=== PATIENT | male | born 1975 | race African-American/Black ===

== ENCOUNTER 2020-10-23 16:05 | Emergency (ER) | payer BC, SELFPAY ==
--- NOTE | ~2020-10-23 | XR_ITS ---
EXAMINATION: XR wrist RT min 3V DATE: 10/23/2020 16:27 INDICATION: Ulnar-sided right wrist pain and tenderness TECHNIQUE: Posteroanterior, ulnar deviation, oblique, and lateral views of the right wrist were obtai terrence. COMPARISON: none FINDINGS: Alignment is normal. No fracture. Joint spaces are normal. Mild soft tissue swelling with subcutaneou s edema along the ulnar side of the distal forearm. IMPRESSION: 1. No osseous abnormality. Reviewed, dictated and finalized at location A. IMPRESSION: 1. No osseous abnormality.
[2020-10-23 16:15] VITALS: BP 133/83; PULSE 83; RESP 20; TEMP 36.9; O2SAT 100
--- NOTE | 2020-10-23 16:15 | ED.UPPEXIN ---
HPI - Extremity Injury (Upper) General Chief Complaint: Extremity Injury, Upper Stated Complaint: Right wrist pain Time Seen by Provider: 10/23/20 16:15 Source: patient and RN notes reviewed Mode of arrival: ambulatory Limitations: no limitations History of Present Illness HPI narrative: 45 yo male C/O pain in the right wrist for 2 weeks. Patient reports moving a pool table when he twisted the wrist the wrong way. Has had some inflammation and popping since. No treatment prior to arrival. Related Data Home Medications Medication Instructions Recorded Confirmed amlodipine [Norvasc] 5 mg PO DAILY 10/23/20 10/23/20 Allergies Allergy/AdvReac Type Severity Reaction Status Date / Time No Known Allergies Allergy Verified 10/23/20 16:20 Review of Systems Review of Systems: All systems reviewed & are unremarkable except as noted in HPI and below Constitutional: Constitutional: Reports no additional constitutional complaints, Denies chills and Denies fever(s) Cardiovascular: Cardiovascular: Reports no additional cardiovascular complaints and Denies chest pain Respiratory: Respiratory: Reports no additional respiratory complaints, Denies cough, Denies dyspnea and Denies wheezing Gastrointestinal: Gastrointestinal: Reports no additional gastrointestinal complaints, Denies abdominal pain, Denies diarrhea, Denies nausea and Denies vomiting Musculoskeletal: Musculoskeletal: Reports arthralgias (Right wrist) Neurologic: Reports system reviewed and no additional complaints, except as documented, Denies headache(s), Denies focal weakness, Denies numbness and Denies weakness Psychiatric: Psychiatric: Reports no additional psychiatric complaints PMFSH Past Medical History Medical History (Updated 10/23/20 @ 19:06 by Jannette Singh) Hypertension Social History Social History Gender identity (if verbalized by the patient): Male Exam Const: General: healthy appearing, no acute distress and alert Nutritional Appearance: well nourished and obese Orientation/consciousness: patient oriented x3 Neck: Neck: normal visual inspection Chest: Chest palpation & inspection: normal inspection of the chest Resp: Effort & Inspection: normal respiratory effort Auscultation: clear to auscultation bilaterally Cardio: Rate: regular rate Rhythm: regular rhythm Skin: General skin exam: normal color Rashes: no rashes Wounds: no wounds Neuro: General: patient oriented x3 and moves all extremities Speech: normal speech Gait exam (Neuro): Normal gait present Extrem: Right upper extremity: wrist tenderness of the volar wrist; not of the anatomic snuffbox, swelling, normal ROM and other (Positive radial pulse. Capillary refill under 2 seconds.); no abrasions, no lacerations and no ecchymosis Psych: Appearance: grossly normal and well kempt Mental Status: mental status grossly normal Affect: normal affect Attitude: cooperative Thought content: Yes Normal thought content present Course Vital Signs Vital signs: Vital Signs Temperature 98.4 F 10/23/20 16:15 Pulse Rate 83 10/23/20 16:15 Respiratory Rate 20 10/23/20 16:15 Blood Pressure 133/83 10/23/20 16:15 Pulse Oximetry 100 10/23/20 16:15 Temperature 98.4 F 10/23/20 16:15 Pulse Rate 83 10/23/20 16:15 Respiratory Rate 20 10/23/20 16:15 Blood Pressure 133/83 10/23/20 16:15 Pulse Oximetry 100 10/23/20 16:15 Reviewed MDM - Extremity Injury (Upper) MDM Narrative Medical decision making narrative: Discharge instructions reviewed with patient, as well as provided in writing per nursing staff. The instructions also include specific and strict return/GO TO THE ER as well as f/u information. All questions have been answered, and the patient deny any further questions with discharge and discharge plan. Differential Diagnosis Differential diagnosis: Likely sprain and strain of wrist, fracture of giron
== END 2020-10-23 16:40 | disposition home or self-care (01) ==
PROVIDERS: Emergency Provider Nurse Practitioner; PCP Physician Assistant
DX: S63.501A Unspecified sprain of right wrist, initial encounter (principal); S66.911A Strain of unspecified muscle, fascia and tendon at wrist and hand level, right hand, initial encounter; X50.9XXA Other and unspecified overexertion or strenuous movements or postures, initial encounter; I10 Essential (primary) hypertension
CPT/HCPCS: 73110; 99213; G0463

== ENCOUNTER 2021-01-16 10:21 | Emergency (ER) | payer OTHER, BC, SELFPAY ==
[2021-01-16 10:26] VITALS: BP 126/84; PULSE 92; RESP 18; TEMP 36.6; O2SAT 100
[2021-01-16] MEDS: KETOROLAC (*BKC) 60 MG/2 ML VIAL IM (11:26)
[2021-01-16 11:56] VITALS: TEMP 36.6
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
[2021-01-16 12:23] VITALS: BP 128/74; PULSE 78; RESP 18; O2SAT 98
== END 2021-01-16 12:24 | disposition home or self-care (01) ==
PROVIDERS: Emergency Provider General Practice; PCP Physician Assistant
DX: S39.012A Strain of muscle, fascia and tendon of lower back, initial encounter (principal); S16.1XXA Strain of muscle, fascia and tendon at neck level, initial encounter; V43.52XA Car driver injured in collision with other type car in traffic accident, initial encounter
CPT/HCPCS: 96372; 99283; J1885

== ENCOUNTER 2022-03-12 08:16 | Emergency (ER) | payer BC, SELFPAY ==
[2022-03-12 08:27] VITALS: BP 137/89; PULSE 97; RESP 22; TEMP 36.8; O2SAT 100
--- NOTE | 2022-03-12 08:27 | ED.URI ---
HPI - URI/Sore Throat General Chief Complaint: Upper Respiratory Infection Stated Complaint: Ears Irritation, Sinus Time Seen by Provider: 03/12/22 08:30 Source: patient, RN notes reviewed and old records reviewed Mode of arrival: ambulatory Limitations: no limitations History of Present Illness HPI Narrative: 46-year-old male who presents to [facility] care with complaints of sinus congestion, sinus pressure and drainage with some cough since Tuesday. patient reports that he has been using Mucinex, some nasal spray and has been taking cold and flu mediation OTC and he received RX from his physician's office for codeine cough syrup and Amoxicillin which he started last night. Patient has had COVID vaccinations and Booster but has not had flu shot and wants to be tested for Flu. Patient denies any sore throat or shortness of breath, denies any known fevers, chills or sweats, denies any body aches. MD elicited complaint: cough, rhinorrhea, nasal congestion and other (ears feel irritated.) Pertinent past history: seasonal allergies Onset (ago): day(s) (tuesday 3 days) Treatments prior to arrival: cold medicine and other (nasal spray, codeine cough medication and Antibiotic of amoxicillin) Related Data Home Medications Medication Instructions Recorded Confirmed amlodipine 5 mg tablet (Norvasc) 5 mg PO DAILY 10/23/20 03/12/22 hydrochlorothiazide 25 mg tablet 25 mg DIRECTED 01/16/21 03/12/22 amoxicillin 500 mg capsule 500 mg DIRECTED 03/12/22 03/12/22 codeine 10 mg-guaifenesin 100 mg/5 5 ml DIRECTED 03/12/22 03/12/22 mL oral liquid Allergies Allergy/AdvReac Type Severity Reaction Status Date / Time No Known Allergies Allergy Verified 01/16/21 11:04 Review of Systems Review of Systems: CONSTITUTIONAL: Denies fever, chills, or sweats. EYES: Denies visual changes, redness, or discharge. ENT: Positive for rhinorrhea, congestion,no sore throat, bilateral ear irritation. CARDIOVASCULAR: Denies chest pain, palpitations, or edema. RESPIRATORY: Positive for cough denies any dyspnea. GASTROINTESTINAL: Denies abdominal pain, nausea, vomiting, or diarrhea. GENITOURINARY: Denies dysuria or hematuria. SKIN: Denies rash or itching. MUSCULOSKELETAL: Denies back pain, joint pain, or myalgia. NEUROLOGIC: Denies acute headache,no numbness, or weakness. PSYCHIATRIC: Denies anxiety or depression. All systems reviewed & are unremarkable except as noted in HPI and below PMFSH Past Medical History Medical History (Updated 03/12/22 @ 09:00 by Najma Hill NP) Borderline diabetes Hypertension Kidney stones Obesity Social History Social History (Updated 03/12/22 @ 08:51 by Najma Hill NP) Smoking status: Never smoker Alcohol intake: current Alcohol use details: social Substance use type: does not use Living arrangements: with family Gender identity (if verbalized by the patient): Male Comments At time of signature, agree with nursing past medical, surgical, social and family history. There is no relevant family history pertinent to the presenting complaint Exam Narrative: GENERAL:ill-appearing, well-nourished,obese, and in no acute distress. HEAD: Normocephalic, atraumatic. EYES: PERRLA and EOMI. ENT: Nares red with swelling, clear to light yellow rhinorrhea no epistaxis. Mucous membranes moist.TM's normal with good light reflex, throat red with no lesions or exudates, uvula red swollen but midline, tonsils swollen NECK: Supple. no lymphadenopathy CHEST: Clear to auscultation. No respiratory distress. cough noted SAO2 100% on room air HEART: Regular rate and rhythm. No murmur heard. Normal peripheral pulses. ABDOMEN: Soft, nontender, nondistended, normal active bowel sounds. EXTREMITIES: Normal range of motion. No edema. SKIN: Warm, dry, no rash. NEURO: No focal deficits. Alert and oriented x3. Course Course Level of Care: Express Care Visit MDM - URI/Sore Throat Differential Diagnosis Differential
== END 2022-03-12 09:11 | disposition home or self-care (01) ==
PROVIDERS: Emergency Provider Registered Nurse; PCP Physician Assistant
DX: J32.9 Chronic sinusitis, unspecified (principal); J10.1 Influenza due to other identified influenza virus with other respiratory manifestations; I10 Essential (primary) hypertension; R73.03 Prediabetes; E66.9 Obesity, unspecified; Z68.38 Body mass index [BMI] 38.0-38.9, adult
CPT/HCPCS: 87804; 99213; G0463

== ENCOUNTER 2022-10-07 09:31 | Emergency (ER) | payer BC, SELFPAY ==
--- NOTE | 2022-10-07 09:35 | ED.URI ---
HPI - URI/Sore Throat General Chief Complaint: Ear Stated Complaint: Ears Irritation Time Seen by Provider: 10/07/22 09:47 Source: patient, RN notes reviewed and old records reviewed Mode of arrival: ambulatory Limitations: no limitations History of Present Illness HPI Narrative: 47-year-old male presents to the [facility] with complaints of ear discomfort for about a week. Has taken an allergy pill as well as tried using ear drops 1 time. Patient reports intermittent ear clogging for the last week. Denies any other symptoms of a URI Onset (ago): week(s) (1) Related Data Home Medications Medication Instructions Recorded Confirmed amlodipine 5 mg tablet (Norvasc) 5 mg PO DAILY 10/23/20 10/07/22 hydrochlorothiazide 25 mg tablet 25 mg DIRECTED 01/16/21 10/07/22 Allergies Allergy/AdvReac Type Severity Reaction Status Date / Time No Known Allergies Allergy Verified 10/07/22 09:38 Review of Systems Review of Systems: All systems reviewed & are unremarkable except as noted in HPI and below Constitutional: Constitutional: Reports no additional constitutional complaints Eyes: Eyes: Reports no additional eye complaints ENT: Reports as per HPI Cardiovascular: Cardiovascular: Reports no additional cardiovascular complaints, Denies chest pain and Denies dyspnea Respiratory: Respiratory: Reports no additional respiratory complaints, Denies chest congestion, Denies cough and Denies dyspnea Gastrointestinal: Gastrointestinal: Reports no additional gastrointestinal complaints, Denies abdominal pain, Denies nausea and Denies vomiting Musculoskeletal: Musculoskeletal: Reports no additional musculoskeletal complaints Integumentary/Breasts: Skin/Breast: Reports system reviewed and no additional complaints, except as docu Neurologic: Reports system reviewed and no additional complaints, except as documented Psychiatric: Psychiatric: Reports no additional psychiatric complaints Allergic/Immunologic: Allergic/Immunologic: Reports no additional allergic/immunologic complaints [facility] Past Medical History Medical History (Updated 10/07/22 @ 15:21 by Jannette Singh APRN) Borderline diabetes Hypertension Kidney stones Obesity Social History Social History Smoking status: Never smoker Alcohol intake: current Alcohol use details: social Substance use type: does not use Living arrangements: with family Gender identity (if verbalized by the patient): Male Comments At the time of my signature, I reviewed and agree with the nursing past medical, surgical, social, and family history. There is no relevant family history pertinent to the patient complaint. Exam Const: General: cooperative, healthy appearing, comfortable, no acute distress, well developed, alert and well nourished Nutritional Appearance: well nourished and obese Orientation/consciousness: patient oriented x3 Limitations: no limitations HENMT: Head: normal to inspection Ears: hearing grossly normal bilaterally, external ears normal, EAC's normal and TM abnormal bulging bilateral and with fluid behind the TM bilateral; not dull, not erythematous, with no loss of landmarks, not perforated and not retracted Face/Nose/Sinus: Normal external nose present, Normal nares present, Normal nasal mucous membranes and turbinates present and normal facial exam Face and sinus: normal facial exam Mouth: Yes Normal oral and palatal mucosa present, Yes lip normal and Yes moist mucous membranes Throat: posterior oropharynx normal and uvula midline Eyes: General: appearance normal, both eyes and all related structures Alignment and Position: alignment normal Periorbital: periorbital findings normal Conjunctivae: conjunctivae normal Pupils: Equal, round and reactive pupils present EOM: EOMs intact bilaterally Neck: Neck: normal visual inspection, full ROM, no lymphadenopathy and no meningeal signs Chest: Sis
[2022-10-07 09:45] VITALS: BP 114/74; PULSE 87; RESP 16; TEMP 36.9; O2SAT 98
== END 2022-10-07 09:55 | disposition home or self-care (01) ==
PROVIDERS: Emergency Provider Nurse Practitioner; PCP Physician Assistant
DX: H65.03 Acute serous otitis media, bilateral (principal); I10 Essential (primary) hypertension; E66.9 Obesity, unspecified; Z68.42 Body mass index [BMI] 45.0-49.9, adult
CPT/HCPCS: 99213; G0463

== ENCOUNTER 2024-08-05 20:26 | Emergency (ER) | payer BC, SELFPAY ==
--- NOTE | ~2024-08-05 | XR_ITS ---
EXAMINATION: XR chest 2V DATE: 08/05/2024 20:51 INDICATION: Chest pain TECHNIQUE: PA and lateral views of the chest were obtained. COMPARISON: Chest radiograph dated 01/24/19 FINDINGS: The lungs remain clear with no focal airspace opacities, pulmonary edema, pleural effusion or pneumot horax. Heart size is normal with small left paracardial fat pad. Mild thoracic dextrocurvature. IMPRESSION: 1. No acute cardiopulmonary disease. Reviewed, dictated and finalized at location A. ICAL RESEARCH TECH
--- OUTSIDE RECORDS SUMMARY | 2024-08-05 20:29 | XMS_ITS | Referral Summary ---
Author Organization [facility] Address [address] [place] [address] Care Team Providers Care Product Support Engineer Name Role Phone Nicolette Glez Primary Care Provider [phone]- [phone] Encounters Date Type Department Care Team Description 05/24/2024 Telephone [facility] [address] [place] [address] Mary Gomez [facility] Sleep Study Results 05/24/2024 Orders Only [facility] [address] [place] [address] Tyree Cueto MD GUNNAR (obstructive sleep apnea) (Primary Dx) 05/23/2024 2:00 PM BACKGROUND INVESTIGATOR - 05/23/2024 11:59 PM BACKGROUND INVESTIGATOR Hospital Encounter [facility] [address] [place] [address] Daytime sleepiness; Snoring Discharge Disposition: Discharge to home or self care from Last 3 Months Allergies Active Allergy Reactions Criticality Noted Date Comments Danielito Inhibitors Angioedema High 05/10/2019 Medications amLODIPine (NORVASC) 5 mg tabletIndications :hypertension Take 1 tablet (5 mg total) by mouth every morning 4 Active hydroCHLOROthiazi de (HYDRODIURIL) 25 mg tabletIndications :Essential hypertension Take 1 tablet (25 mg total) by mouth daily 4 Active semaglutide (WEGOVY) 0.25 mg/0.5 mL auto-injector Inject 0.5 mL (0.25 mg total) under the skin every 7 days 2 mL Active Active Problems Problem Noted Date Diagnosed Date Daytime sleepiness 01/08/2024 Assessment & Plan (2024 10:15 PM CDT): Awaiting sleep study with Dr. Cueto. Will await recommendations Assessment & Plan (03/11/2024 4:28 PM CDT): Awaiting sleep study to determine if he has sleep apnea. Assessment & Plan (02/16/2024 10:50 AM CDT): Due to the patient's insurance I have ordered an in-home nocturnal polysomnogram. Assessment & Plan (01/08/2024 11:17 PM CDT): This is a significant, separately identifiable problem that was evaluated and managed on the same day as the wellness exam Patient is noticing daytime sleepiness and snoring. He has had witnessed apneic events. 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 The BMI is above average. BMI management plan is completed. BMI Follow-up includes: nutrition counseling, exercise counseling and education provided. Patient has done well maintaining his weight. Discussed to have weight loss I will have to have a deficit. If he can get to 250 calories a day consistently he can lose about 25 lb this next year. Discussed different ways to have these 250 calories including diet changes as well as exercise changes. He would benefit from being able to be on G LP for assistance in weight loss especially with his prediabetes, hypertension and obesity along with probable GUNNAR. Will prescribe majora to see if he has coverage to see if we can assist him additionally with his weight loss efforts Assessment & Plan (03/11/2024 4:28 PM CDT): Discussed the patient's BMI. The BMI is above average. BMI management plan is completed. BMI Follow-up includes: nutrition counseling, exercise counseling and education provided. Discussed weight management issues for approximately 15 minutes. Encouraged to log all food/drink/intake to determine daily caloric intake. Reviewed 3500 calories = 1# of weight so have to register a deficit to lose. Discussed obtaining this by decreasing daily caloric intake and or increasing exercise. Discussed decreasing carbs. Maintaining enough protein. Monitor/be aware of serving size. Increase water. Avoid sugar sweetened drinks. Encouraged to increase his protein intake and work towards at least 120-130 g of protein a day. Encouraged him to keep his calories under 3000. Encouraged to bring to his next visit so we can re-evaluate and see if there are more specific changes that we can work on Discussed G LP as an option to assist with weight loss. Encouraged him to contact his insurance company to see if he could qualify for We[employer] and or [place] bound. Assessment & Plan (01/08/2024 11:17 PM CDT): Discussed the patient's BMI. The BMI is above average. BMI management plan is completed. BMI Follow-up includes: nutrition counseling, exercise counseling and education provided. Assessment & Plan (11/11/2022 8:40 AM CDT): Discussed the patient's BMI. The BMI is above average. BMI management plan is completed. BMI Follow-up includes: nutrition counseling, exercise counseling and education provided. BMI 50.0-59.9, adult 11/11/2022 Assessment & Plan (2024 11:31 AM CDT): Discussed the patient's BMI. The BMI is above average. BMI management plan is completed. BMI Follow-up includes: nutrition counseling, exercise counseling and education provided. Assessment & Plan (03/11/2024 4:27 PM CDT): Discussed the patient's BMI. The BMI is above average. BMI management plan is completed. BMI Follow-up includes: nutrition counseling, exercise counseling and education provided. Assessment & Plan (01/08/2024 11:17 PM CDT): Discussed the patient's BMI. The BMI is above average. BMI management plan is completed. BMI Follow-up includes: nutrition counseling, exercise counseling and education provided. Assessment & Plan (11/11/2022 8:40 AM CDT): Discussed the patient's BMI. The BMI is above average. BMI management plan is completed. BMI Follow-up includes: nutrition counseling, exercise counseling and education provided. Dysfunction of right eustachian tube 10/26/2022 Assessment & Plan (11/21/2022 9:46 PM CDT): Continue antihistamine (Claritin OR Zyrtec), Mucinex 12hour and Steroid nasal spray (Flonase). Push fluids. If sxs persist with addition of the Mucinex, will need referral to ENT -- Assessment & Plan (10/26/2022 8:36 AM CDT): Reviewed with patient and showed pictures of eustachian tube dysfunction. Reviewed the pathophysiology behind it and treatment options. Start antihistamine (Claritin OR Zyrtec), Mucinex 12hour and Steroid nasal spray (Flonase). Will add steroid Dosepak since his symptoms have been more persistent. Push fluids. Reviewed risks benefits alternatives side effects and proper use. Follow-up in month to reassess. If symptoms persist and unable to get pressure balance will consider referral to ENT. Patient is in agreement with the plan Colon cancer screening 02/06/2022 Assessment & Plan (03/11/2024 4:26 PM CDT): Provided Dr. Rush's information for patient to call and get his appointment scheduled as they have been reaching out to him with the open referral Assessment & Plan (01/08/2024 11:17 PM CDT): Patient is due for colon cancer screening. Will make referral Assessment & Plan (02/06/2022 5:17 PM CDT): Patient would like Cologuard. Cologuard order placed today Fatigue 12/17/2020 Assessment & Plan (12/17/2020 10:04 AM CDT): Probably multifactorial. Check labs and followup to re-evaluate Prostate cancer screening 12/17/2020 Assessment & Plan (12/17/2020 10:04 AM CDT): Check labs Influenza vaccine refused 05/12/2019 Assessment & Plan (05/12/2019 6:57 PM BACKGROUND INVESTIGATOR): Encouraged vaccine. Reviewed risks/ benefits. Patient refuses and accepts risks. Angioedema 05/10/2019 Overview (05/10/2019): Probably due to DANIELITO Assessment & Plan (05/10/2019 10:28 AM BACKGROUND INVESTIGATOR): Discussed with patient this appears to be angioedema related to the DANIELITO- Inhibitor as opposed to an allergic reaction (no itching or other hives/rash) Reviewed at length importance of monitor for difficulty breathing/compromise of airway and if notes change in voice/horseness, drooling, difficulty swallowing he is to go to ER immediately for immediate care as this is a true emergency. Will hold the DANIELITO Change to amlodipine. Encouraged to start zyrtec and cimetidine (otc). Discussed steroid but advised is probably not going to change the course/hasten resolution of swelling. Reviewed the swelling will usually peak and then resolve over 24-72hours. Discussed obtaining labs work to for causes other than DANIELITO-Induced andioedema. He prefers to monitor and consider if this doesn't resolve promptly. Provided patient handout from Up to date. Followup next week to reassess and check bp Pre-diabetes 05/09/2019 Assessment & Plan (01/08/2024 11:15 PM CDT): Pre-diabetes/hyperglycemia is a precursor to Dm. Stressed importance of working on diet (decrease your simple sugars and one carbohydrate with each meal) and increase you exercise to achieve weight loss and this will help prevent you from progressing to diabetes. Assessment & Plan (02/06/2022 5:16 PM CDT): Pre-diabetes/hyperglycemia is a precursor to Dm. Stressed importance of working on diet (decrease your simple sugars and one carbohydrate with each meal) and increase you exercise to achieve weight loss and this will help prevent you from progressing to diabetes. Assessment & Plan (12/16/2020 10:48 PM CDT): Pre-diabetes/hyperglycemia is a precursor to Dm. Stressed importance of working on diet (decrease your simple sugars and one carbohydrate with each meal) and increase you exercise to achieve weight loss and this will help prevent you from progressing to diabetes. Assessment & Plan (05/12/2019 6:54 PM BACKGROUND INVESTIGATOR): Pre-diabetes is a precursor to Dm. Stressed importance of working on diet (decrease your simple sugars and one carbohydrate with each meal) and increase you exercise to achieve weight loss and this will help prevent you from progressing to diabetes. Slow transit constipation 11/09/2018 Essential hypertension 11/09/2018 Assessment & Plan (2024 10:13 PM CDT): Bp is stable/in acceptable range for any co-morbidities. Encouraged to limit sodium intake and exercise for weight control. Continue amlodipine and hydrochlorothiazide Assessment & Plan (03/11/2024 4:26 PM CDT): Bp is stable/in acceptable range for any co-morbidities. Encouraged to limit sodium intake and exercise for weight control. Continue Norvasc 5 mg and hydrochlorothiazide 25 Assessment & Plan (01/08/2024 11:16 PM CDT): Bp is stable/in acceptable range for any co-morbidities. Encouraged to limit sodium intake and exercise for weight control. Amlodipine 5 and hydrochlorothiazide 25 Assessment & Plan (02/06/2022 5:16 PM CDT): Bp is stable/in acceptable range for any co-morbidities. Encouraged to limit sodium intake and exercise for weight control. Continue with amlodipine 5 and hydrochlorothiazide 25 still has a little swelling on that left leg but strongly encouraged a supportive stocking on both. He is able to walk multiple times a week multiple mild aches and denies any chest pain shortness of breath or any other symptoms. Working steadily on weight loss. Assessment & Plan (12/17/2020 10:03 AM CDT): This is a significant, separately identifiable problem that was evaluated and managed on the same day as the wellness exam Bp is still elevated. Encouraged to limit sodium intake and exercise for weight control. Co continue amlodipine 5 mg Start hydrochlorothiazide 25 mg 1 tablet in the morning. Reviewed with patient risks benefits alternatives side effects and proper use. He is to expect increase in urination. Recheck blood pressure in a couple weeks in the office Assessment & Plan (05/12/2019 6:54 PM BACKGROUND INVESTIGATOR): Bp is elevated today. He didn't take his medication today. Encouraged to take daily and monitor bp. If sonsistently over 140/90 may need to adjust dose. Encouraged to limit sodium intake and exercise for weight control. Assessment & Plan (05/10/2019 10:22 AM BACKGROUND INVESTIGATOR): STOP DANIELITO and avoid for the future. Added to allergy list Start Amlodipine 5mg one daily. Followup in 1 week to recheck bp. Resolved Problems Problem Noted Date Diagnosed Date Resolved Date Snoring 02/16/2024 02/29/2024 Left chronic otitis media 07/26/2023 Morbid obesity 10/26/2022 11/11/2022 Assessment & Plan (10/26/2022 8:12 AM CDT): Discussed the patient's BMI. The BMI is above average. BMI management plan is completed. BMI Follow-up includes: nutrition counseling, exercise counseling and education provided. BMI 50.0-59.9, adult 10/26/2022 023 Assessment & Plan (10/26/2022 8:11 AM CDT): Discussed the patient's BMI. The BMI is above average. BMI management plan is completed. BMI Follow-up includes: nutrition counseling, exercise counseling and education provided. Acute non-recurrent frontal sinusitis 03/28/2022 10/26/2022 Assessment & Plan (03/28/2022 9:37 PM CDT): Start antibiotic, antihistamine (Claritin OR Zyrtec), Mucinex 12hour and Steroid nasal spray (Flonase). Push fluids. Rest. Supportive care. If sxs worsen or don\'t improve, pt is to followup in the office. Morbid obesity with BMI of 50.0-59.9, adult 12/17/2020 10/26/2022 Assessment & Plan (02/06/2022 5:17 PM CDT): Discussed the patient's BMI. The BMI is above average. BMI management plan is completed. BMI Follow-up includes: nutrition counseling, exercise counseling and education provided. Assessment & Plan (12/17/2020 9:06 AM CDT): Obesity is unchanged. Discussed the patient's BMI. The BMI is above average. BMI management plan is completed. BMI Follow-up includes: nutrition counseling, exercise counseling and education provided. Adult BMI 50.0-59.9 kg/sq m 12/17/2020 12/17/2020 Assessment & Plan (12/17/2020 9:07 AM CDT): Obesity is unchanged. Discussed the patient's BMI. The BMI is above average. BMI management plan is completed. BMI Follow-up includes: nutrition counseling, exercise counseling and education provided. Need for Tdap vaccination 05/12/2019 Assessment & Plan (05/12/2019 6:56 PM BACKGROUND INVESTIGATOR): Updated in the office. Annual physical exam 05/12/2019 Assessment & Plan (01/08/2024 11:16 PM CDT): Encouraged healthy lifestyle, good nutrition and exercise. Encouraged Calcium and Vitamin D and weight bearing exercise for bone health. Reviewed immunizations Reviewed age appropirate screenings. Assessment & Plan (02/06/2022 5:16 PM CDT): Encouraged healthy lifestyle, good nutrition and exercise. Encouraged Calcium and Vitamin D and weight bearing exercise for bone health. Reviewed immunizations Reviewed age appropirate screenings. Assessment & Plan (12/16/2020 10:48 PM CDT): Encouraged healthy lifestyle, good nutrition and exercise. Encouraged Calcium and Vitamin D and weight bearing exercise for bone health. Reviewed immunizations Reviewed age appropirate screenings. Assessment & Plan (05/12/2019 6:56 PM BACKGROUND INVESTIGATOR): Encouraged healthy lifestyle, good nutrition and exercise. Encouraged Calcium and Vitamin D and weight bearing exercise for bone health. Reviewed immunizations Reviewed age appropirate screenings. Obesity, morbid, BMI 40.0-49.9 05/10/2019 05/10/2019 Morbid obesity with BMI of 45.0-49.9, adult 05/09/2019 05/09/2019 Morbid obesity with BMI of 45.0-49.9, adult 05/09/2019 12/17/2020 Assessment & Plan (05/10/2019 10:22 AM BACKGROUND INVESTIGATOR): Obesity is unchanged. Discussed the patient's BMI. The BMI is above average. BMI management plan is completed. BMI Follow-up includes: nutrition counseling, exercise counseling and education provided. Assessment & Plan (05/09/2019 8:06 AM BACKGROUND INVESTIGATOR): Obesity is unchanged. Discussed the patient's BMI. The BMI is above average. BMI management plan is completed. BMI Follow-up includes: nutrition counseling, exercise counseling and education provided. BMI 45.0-49.9, adult 05/09/2019 021 Assessment & Plan (05/10/2019 10:22 AM BACKGROUND INVESTIGATOR): Obesity is unchanged. Discussed the patient's BMI. The BMI is above average. BMI management plan is completed. BMI Follow-up includes: nutrition counseling, exercise counseling and education provided. Assessment & Plan (05/12/2019 6:58 PM BACKGROUND INVESTIGATOR): Obesity is unchanged. Discussed the patient's BMI. The BMI is above average. BMI management plan is completed. BMI Follow-up includes: nutrition counseling, exercise counseling and education provided. Discussed weight management issues for approximately 15 minutes. Encouraged to log all food/drink/intake to determine daily caloric intake. Reviewed 3500 calories = 1# of weight so have to register a deficit to lose. Discussed obtaining this by decreasing daily caloric intake and or increasing exercise. Discussed decreasing carbs. Maintaining enough protein. Monitor/be aware of serving size. Increase water. Avoid sugar sweetened drinks. Immunizations Immunization Administration Dates Next Due Influenza, Unspecified 2024(Deferr ed: Patient Refused),06/20/2023(Deferred: Patient Refused),06/20/2023(Deferred: Patient Refused),07/21/2022(Deferred: Patient Refused),12/18/2021(Deferred: Patient Refused),10/18/2021(Deferred: Patient Refused),07/21/2021(Deferred: Patient Refused),06/20/2020(Deferred: Patient Refused),05/09/2019(Deferred: Patient Refused),03/20/2018(Deferred: Patient Refused) PPD TEST 04/24/2018 Pfizer SARS-CoV-2 Monovalent Vaccination (12+ Yrs) PURPLE 08/11/2020,07/21/2020 Tdap 05/09/2019 Social History Tobacco Use Types Packs/Day Years Used Date Smoking Tobacco: Never Passive Smoke Exposure: Never Smokeless Tobacco: Never Tobacco Cessation:Counseling Given: Not Answered Alcohol Use Standard Drinks/Week Comments Yes 0 (1 standard drink = 0.6 oz pur e alcohol) AUDIT-C Answer Date Recorded Q1: How often do you have a drink containing alc ohol? Monthly or less 07/04/2023 Q2: How many drinks containi ng alcohol do you have on a typical day when you are drinking? 1 or 2 07/04/2023 Q3: How often do you have si x or more drinks on one occasion? Never 07/04/2023 PHQ-2 Answer Date Recorded PHQ-2 Total Score (If total score is 3 or more points, staff should administer the PHQ-9) 0 2024 Personal Safety Answer Date Recorded Have you ever been in or are you currently in a harmful physical or emotional relationship or is someone making you feel afraid or unsafe? 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 Not on file Not on f ile Last Filed Vital Signs Vital Sign Reading Time Taken Comments Blood Pressure 118/78 2024 11:25 AM CDT Pulse 77 2024 11:25 AM CDT Temperature 37.1 C (98.8 F) 2024 11:25 AM CDT Respiratory Rate 12 07/26/2023 5:20 PM BACKGROUND INVESTIGATOR Oxygen Saturation 96% 2024 11:25 AM CDT Inhaled Oxygen Concentration - - Weight 171 kg (376 lb 14.4 oz) 2024 11:25 AM CDT Height 180.3 cm (5' 11 ) 2024 11:25 AM CDT Body Mass Index 52.57 2024 11:25 AM CDT Plan of Treatment Not on file Medical Devices Implanted Type Area Linoleum Floor Layer Device Identifier Shelf Expiration Date Model / Serial / Lot [employer] Porp [place] Prosthesis Ossicular 655 - [id number] Implanted:Qty: 1 on 07/26/2023 by Quentin Dominique MD at [facility] Left: Ear [employer] [id number] 09/15/2023 65 5 / / [id number] Procedures Procedure Name Priority Date/Time Associated Diagnosis Comments PORTABLE/HOME SLEEP STUDY Routine 05/23/2024 2:09 PM BACKGROUND INVESTIGATOR Daytime sleepiness Snoring PSA SCREEN Routine 12/17/2020 9:51 AM CDT Prostate cancer screening from Last 3 Months or Most Recently Relevant to Health Maintenance Results * Portable/Home Sleep Study (05/23/2024 2:09 PM BACKGROUND INVESTIGATOR) us Crystal Katz NP SLEEP CENTER ORDERABLES Final Result [facility] [address] [place] [address] * PSA screen (12/17/2020 9:51 AM CDT) PSA 0.6 < OR = 4.0 ng/mL [employer] Comment: The total PSA value from this assay system is standardized against the WHO standard. The test result will be approximately 20% lower when compared to the equimolar-standardized total PSA (Vipul Harvinder). Comparison of serial PSA results should be interpreted with this fact in mind. This test was performed using the Siemens chemiluminescent method. Values obtained from different assay methods cannot be used interchangeably. PSA levels, regardless of value, should not be interpreted as absolute evidence of the presence or absence of disease. Blood specimen (specimen) 12/17/2020 9:51 AM CDT 12/17/2020 9:52 AM CDT Narrative [facility] - 12/18/2020 3:24 AM CDT FASTING:NO FASTING: NO Nicolette SING[facility] LAB BLOOD ORDERABLES Final Result [facility] [employer] [address] [place] [address] from Last 3 Months or Most Recently Relevant to Health Maintenance Insurance [employer] ACCESS CHOICE Member Subscriber Plan / Payer (Ef fective 2021-Present) Name:Nick Patel Relation to Subscriber:Self Name:Nick Patel Payer ID:[id number] (NAIC) Type:[facility] Address: [facility] [id number] [facility] ACCESS CHOICE Care Teams Product Support Engineer Relationship Specialty Start Date End Date Nicolette Glez PA [address] [facility] [address] [place] [address] PCP - General Internal Medicine 09/25/18
--- OUTSIDE RECORDS SUMMARY | 2024-08-05 20:29 | XMS_ITS | Clinical Summary ---
Author Organization [facility] [place] [address] [facility] Address [address] [place] [address] Care Team Providers Care Sales Representative Gas Service Name Role Phone Nicolette Glez Primary Care Provider [phone]- [phone] Allergies Active Allergy Reactions Criticality Noted Date [...] the skin every 7 days 2 mL 4 Active Active Problems Problem Noted Date Diagnosed [...] he could qualify for Wegovy and or [place] bound. Assessment & Plan (01/08/2024 11:17 PM [...] 05/12/2019 Assessment & Plan (05/12/2019 6:57 PM BANQUET FOOD SERVER): Encouraged vaccine. Reviewed risks/ benefits. Patient refuses and accepts risks. Angioedema 05/10/2019 Overview (05/10/2019): Probably due to DANIELITO Assessment & Plan (05/10/2019 10:28 AM BANQUET FOOD SERVER): Discussed with patient this appears to be [...] diabetes. Assessment & Plan (05/12/2019 6:54 PM BANQUET FOOD SERVER): Pre-diabetes is a precursor to Dm. Stressed [...] office Assessment & Plan (05/12/2019 6:54 PM BANQUET FOOD SERVER): Bp is elevated today. He didn't take his medication today. Encouraged to take daily and monitor bp. If sonsistently over 140/90 may need to adjust dose. Encouraged to limit sodium intake and exercise for weight control. Assessment & Plan (05/10/2019 10:22 AM BANQUET FOOD SERVER): STOP DANIELITO and avoid for the future. [...] 05/12/2019 Assessment & Plan (05/12/2019 6:56 PM BANQUET FOOD SERVER): Updated in the office. Annual physical exam [...] screenings. Assessment & Plan (05/12/2019 6:56 PM BANQUET FOOD SERVER): Encouraged healthy lifestyle, good nutrition and exercise. Encouraged Calcium and Vitamin D and weight bearing exercise for bone health. Reviewed immunizations Reviewed age appropirate screenings. Obesity, morbid, BMI 40.0-49.9 05/10/2019 05/10/2019 Morbid obesity with BMI of 45.0-49.9, adult 05/09/2019 05/09/2019 Morbid obesity with BMI of 45.0-49.9, adult 05/09/2019 12/17/2020 Assessment & Plan (05/10/2019 10:22 AM BANQUET FOOD SERVER): Obesity is unchanged. Discussed the patient's BMI. The BMI is above average. BMI management plan is completed. BMI Follow-up includes: nutrition counseling, exercise counseling and education provided. Assessment & Plan (05/09/2019 8:06 AM BANQUET FOOD SERVER): Obesity is unchanged. Discussed the patient's BMI. The BMI is above average. BMI management plan is completed. BMI Follow-up includes: nutrition counseling, exercise counseling and education provided. BMI 45.0-49.9, adult 05/09/2019 021 Assessment & Plan (05/10/2019 10:22 AM BANQUET FOOD SERVER): Obesity is unchanged. Discussed the patient's BMI. The BMI is above average. BMI management plan is completed. BMI Follow-up includes: nutrition counseling, exercise counseling and education provided. Assessment & Plan (05/12/2019 6:58 PM BANQUET FOOD SERVER): Obesity is unchanged. Discussed the patient's BMI. [...] size. Increase water. Avoid sugar sweetened drinks. Encounters Date Type Department Care Team Description 05/24/2024 Telephone [facility] [address] [place] [address] Mary Gomez, [facility] Sleep Study Results 05/24/2024 Orders Only [facility] [address] [place] [phone] Tyree Cueto MD GUNNAR (obstructive sleep apnea) (Primary Dx) 05/23/2024 2:00 PM BANQUET FOOD SERVER - 05/23/2024 11:59 PM [facility] Hospital Encounter [facility] [address] [place] [address] Daytime sleepiness; Snoring Discharge Disposition: Discharge to home or self care from Last 3 Months Immunizations Immunization Administration Dates Next Due Influenza, Unspecified 2024(Deferr ed: Patient Refused),06/20/2023(Deferred: Patient Refused),06/20/2023(Deferred: Patient Refused),07/21/2022(Deferred: Patient Refused),12/18/2021(Deferred: Patient Refused),10/18/2021(Deferred: Patient Refused),07/21/2021(Deferred: Patient Refused),06/20/2020(Deferred: Patient Refused),05/09/2019(Deferred: Patient Refused),03/20/2018(Deferred: Patient Refused) PPD TEST 04/24/2018 Pfizer SARS-CoV-2 Monovalent Vaccination (12+ Yrs) PURPLE 08/11/2020,07/21/2020 Tdap 05/09/2019 Surgical History Surgery Date Site/Laterality Comments NO PAST SURGERIES Medical History Medical History Date Comments Obesity Allergic rhinitis Hypertension Ear problems Family History Medical History Relation Name Comments Parkinsonism Father Prostate cancer Father Hypertension Mother Anesthesia problems Neg Hx Relation Name Status Comments Father Mother Social History Tobacco Use Types Packs/Day Years [...] on file Legal Sex Male 11:23 AM BANQUET FOOD SERVER Gender Identity Not on file Sexual Orientation Not on file 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 file Not on f ile Obstetrics History Last Filed Vital Signs Vital Sign Reading Time Taken Comments Blood Pressure 118/78 2024 11:25 AM CDT Pulse 77 2024 11:25 AM CDT Temperature 37.1 C (98.8 F) 2024 11:25 AM CDT Respiratory Rate 12 07/26/2023 5:20 PM BANQUET FOOD SERVER Oxygen Saturation 96% 2024 11:25 AM CDT Inhaled Oxygen Concentration - - Weight 171 kg (376 lb 14.4 oz) 2024 11:25 AM CDT Height 180.3 cm (5' 11 ) 2024 11:25 AM CDT Body Mass Index 52.57 2024 11:25 AM CDT Plan of Treatment Health Maintenance Due Date Last Done Comments Colon Cancer Screening-Colonoscopy 1975 Hepatitis C Screening 1975 Hepatitis B Screening 1993 Prostate Cancer Screening-PSA 12/17/2022 12/17/2020 Covid-19 Vaccine ( season) 2024 08/11/2020, 07/21/2020 Influenza Vaccine (#1) 2024 Postp oned from 02/19/2024 (Patient declined, but will receive in the future) Regular Well Visit/Exam 18-64 12/28/2024 12/29/2023, 02/04/2022, 12/17/2020, Additional history exists Depression Screening 2025 2024, 03/01/2024, 12/29/2023, Additional history exists DTaP/Tdap/Td Vaccine (2 - Td or Tdap) 05/09/2029 05/09/2019 Pneumococcal vaccine <65 Aged Out No longer eligible based on patient's age to complete this topic Medical Devices Implanted Type Area Secondary Teacher Device Identifier Shelf Expiration Date Model / Serial / Lot Sylvia Carter Porp [place] Prosthesis Ossicular 655 - [id number] Implanted:Qty: 1 on 07/26/2023 by Quentin Dominique MD at [facility] Left: Ear [employer] [id number] 09/15/2023 65 / [id number] Procedures Procedure Name Priority Date/Time Associated Diagnosis Comments PORTABLE/HOME SLEEP STUDY Routine 05/23/2024 2:09 PM BANQUET FOOD SERVER Daytime sleepiness Snoring PSA SCREEN Routine 12/17/2020 9:51 AM CDT Prostate cancer screening from Last 3 Months or Most Recently Relevant to Health Maintenance Results * Portable/Home Sleep Study (05/23/2024 2:09 PM BANQUET FOOD SERVER) Crystal Katz NP SLEEP CENTER ORDERABLES Final Result [facility] SLEEP MEDICINE [address] [place] [address] * PSA screen (12/17/2020 9:51 AM CDT) PSA 0.6 < OR = 4.0 ng/mL [facility] Comment: The total PSA value from this [...] 3:24 AM CDT FASTING:NO FASTING: NO Nicolette Glez PA LAB BLOOD ORDERABLES Final Result [facility] [id number] [place] [id number] from Last 3 Months or Most Recently Relevant to Health Maintenance Insurance [employer] CHOICE [employer] ACCESS CHOICE Care Teams Sales Representative Gas Service Relationship Specialty Start Date End Date Nicolette Glez PA [address] [place] [address] PCP - General Internal Medicine 09/25/18
--- NOTE | 2024-08-05 20:33 | ECG_ITS ---
Test Date: 2024-08-05 20:36:33 Measurements Intervals [place] Rate: 70 P: 56 CO: 154 QRS: 9 QRSD: 85 T: 31 QT: 373 QTc: 405 Interpretive Statements SINUS RHYTHM BASELINE ARTIFACT- I, II, III, AVR, AVL, AVF, V1-V6 NORMAL ECG No previous ECG available for comparison Electronically Signed On 08-06-2024 06:56:39 CHIEF MATE by Gabriel Grace D.O.
[2024-08-05 20:36] VITALS: BP 136/91; PULSE 68; RESP 20; TEMP 36.5; O2SAT 100
[2024-08-05 21:09] LABS: Prothrombin Time 13.5 Seconds (11.1-14.7)
[2024-08-05 21:10] LABS: Partial Thromboplastin Time 31.1 Seconds (22.3-36.8)
[2024-08-05 21:13] LABS: Basophils Percent Auto 0.4 % (0.2-1.2); Eosinophils Absolute Auto 0.2 K/mm3 (0-0.3); Eosinophils Percent Auto 2.4 % (0-4.4); Hematocrit 43.1 % (42.0-52.0); Hemoglobin 13.5 g/dL (14.0-18.0); Immature Granulocyte Absolute 0.01 K/mm3 (0.00-0.031); Immature Granulocyte Percent A 0.1 % (0-0.5); Lymphocytes Absolute Auto 2.18 K/mm3 (0.9-3.2); Lymphocytes Percent Auto 32.4 % (18.3-44.2); Mean Corpuscular HGB Conc 31.3 g/dl (32-36); Mean Corpuscular Hemoglobin 27.8 pg (26-34); Mean Corpuscular Volume 88.7 fl (80-100); Mean Platelet Volume 10.1 fl (7.4-10.4); Monocytes Absolute Auto 0.6 K/mm3 (0.1-0.6); Monocytes Percent Auto 8.5 % (2.6-8.5); Neutrophils Absolute Auto 3.8 K/mm3 (1.3-6.7); Neutrophils Percent Auto 56.2 % (45.5-73.1); Platelet Count Result 349 k/mm3 (150-375); Red Blood Count 4.86 M/mm3 (4.6-6.20); Red Cell Distribution Width 14.7 % (11.5-14.5); White Blood Count 6.7 K/mm3 (4.5-10.0)
[2024-08-05 21:21] LABS: Alanine Aminotransferase 14 U/L (6-50); Albumin Level 4.3 g/dL (3.5-5.1); Alkaline Phosphatase 121 U/L (38-126); Anion Gap 10 mmol/L (4-12); Aspartate Amino Transferase 21 U/L (17-59); Bilirubin,Total 0.5 mg/dL (0.2-1.3); Blood Urea Nitrogen 7 mg/dL (9-20); Calcium 9.4 mg/dL (8.4-10.2); Carbon Dioxide 28 mmol/L (22-30); Chloride 105 mmol/L (98-107); Estimated CRCL calculation 146 ml/min; Estimated Glomerular Filt Rate > 60; Glucose 101 mg/dL (65-110); Lipase 47 U/L (23-300); Potassium 3.8 mmol/L (3.4-5.0); Sodium 143 mmol/L (137-145)
[2024-08-05 21:32] LABS: Troponin I < 0.012 ng/mL (0.000-0.034)
[2024-08-05 23:31] VITALS: BP 124/72; PULSE 76; RESP 18; O2SAT 100
--- NOTE | 2024-08-05 23:33 | ECG_ITS ---
Test Date: 2024-08-05 23:54:41 Measurements Intervals [place] Rate: 63 P: 27 MN: 114 QRS: 14 QRSD: 106 T: 36 QT: 427 QTc: 438 Interpretive Statements SINUS RHYTHM WITH SHORT MN INTERVAL BASELINE ARTIFACT- I, II, AVR, AVL, AVF BORDERLINE ECG Compared to ECG 08/05/2024 20:36:33 Short MN interval now present Electronically Signed On 08-06-2024 06:58:03 FINISHING DEPARTMENT SUPERVISOR by Gabriel Garce D.O.
--- NOTE | 2024-08-05 23:42 | ED.CHESTPAIN ---
HPI - Chest Pain General Chief Complaint: Chest Pain Stated Complaint: sharp chest pain Time Seen by Provider: 08/05/24 23:41 Source: patient Mode of arrival: ambulatory Limitations: no limitations History of Present Illness HPI narrative: This is a 49-year-old male with PMH of HTN who presents to the ED for chief complaint of intermittent chest pains ongoing for the past week. Patient states that this did start after recently starting workouts in the gym. States he has been doing a lot of chest exercises such as pectoral fly. States that he will get twinges of pain that lasts for a split 2nd and then go way. He does not report a kind of lasting chest pain. Denies chest heaviness or crushing pain. Denies associated nausea, vomiting, shortness of breath, syncope. Denies history of blood clot, leg swelling, palpitations, abdominal pain, back pain, numbness, weakness. Related Data Home Medications ?Medication ?Instructions ?Recorded ?Confirmed ?Last Taken ?Type amlodipine 5 mg tablet (Norvasc) 5 mg PO DAILY 10/23/20 10/07/22 Unknown History hydrochlorothiazide 25 mg tablet 25 mg DIRECTED 01/16/21 10/07/22 Unknown History Allergies Allergy/AdvReac Type Severity Reaction Status Date / Time No Known Allergies Allergy Verified 08/05/24 20:40 Review of Systems Review of Systems: All systems as dictated in [facility] Past Medical History Medical History (Updated 08/06/24 @ 00:15 by Issac Hurst PA-C) Obesity Borderline diabetes Kidney stones Hypertension Social History Social History Smoking status: Never smoker Alcohol intake: current Alcohol use details: social Substance use type: does not use Living arrangements: with family Gender identity (if verbalized by the patient): Male Exam Narrative: GENERAL: Well-appearing, well-nourished, and in no acute distress. HEAD: Normocephalic, atraumatic. EYES: PERRLA and EOMI. ENT: Nares clear, no rhinorrhea or epistaxis. Mucous membranes moist. Oropharynx without tonsillar hypertrophy exudate or other lesions. NECK: Supple. No adenopathy or masses. CHEST: No respiratory distress. Clear to auscultation. No wheezes rales or rhonchi HEART: Regular rate and rhythm. No murmur heard. Normal peripheral pulses. ABDOMEN: Soft, nontender, nondistended, normal active bowel sounds. MSK: Normal range of motion. No edema. SKIN: Warm, dry, no rash. NEURO: Alert and oriented x4. No focal deficits. PSYCH: Normal mood and affect. Course Vital Signs Vital signs: Vital Signs Temperature 97.7 F 08/05/24 20:36 Pulse Rate 68 08/05/24 20:36 Respiratory Rate 20 08/05/24 20:36 Blood Pressure 136/91 H 08/05/24 20:36 Pulse Oximetry 100 08/05/24 20:36 Oxygen Delivery Room Air 08/05/24 20:36 Temperature 97.7 F 08/05/24 20:36 Pulse Rate 76 08/05/24 23:31 Respiratory Rate 18 08/05/24 23:31 Blood Pressure 124/72 08/05/24 23:31 Pulse Oximetry 98 08/06/24 00:04 Oxygen Delivery Room Air 08/06/24 00:04 MDM - Chest Pain MDM Narrative Medical decision making narrative: This is a 49-year-old male who presents to the ED for chief complaint of chest pain x1 week intermittently. Vitals are normal. Exam is benign. EKG shows normal sinus rhythm. Lab work shows normal troponin. CBC and CMP unremarkable. Heart score is 2 Perc rule negative for PE. Patient was given Toradol IM here for presumed musculoskeletal chest pain. Most likely consistent with muscle strain with recent increase in chest exercises at the gym. Patient will be discharged in stable condition. Supportive measures discussed and return precautions given. Patient is understanding and agreeable with plan for discharge with PCP follow-up. Lab Data 08/05/24 20:44 08/05/24 20:44 Labs: Lab Results 08/05/24 Range/Units 20:44 WBC 6.7 (4.5-10.0) K/mm3 RBC 4.86 (4.6-6.20) M/mm3 Hgb 13.5 L (14.0-18.0) g/dL Hct 43.1 (42.0-52.0) % MCV 88.7 (80-100) fl MCH 27.8 (26-34) pg MCHC 31.3 L (32-36) g/dl RDW 14.7 H (11.5-14.5) % Plt Count 349 (150-375) k/mm3 MPV 10.1 (7.4-10.4) fl Immature Gran % (Auto) 0.1 (0-0.5) % Neut % (Auto) 56.2 (45.5-73.1) % Lymph % (Auto) 32.4 (18.3-44.2) % [place] % (Auto) 8.5 (2.6-8.5) % Eos % (Auto) 2.4 (0-4.4) % Baso % (Auto) 0.4 (0.2-1.2) % Lymph # (Auto) 2.18 (0.9-3.2) K/mm3 [place] # (Auto) 0.6 (0.1-0.6) K/mm3 Eos # (Auto) 0.2 (0-0.3) K/mm3 Baso # (Auto) 0.0 (0.0-0.1) K/mm3 Abs Immat Gran (auto) 0.01 (0.00-0.031) K/mm3 Absolute Neuts (auto) 3.8 (1.3-6.7) K/mm3 Absolute Nucleated RBC 0.000 (0.0-0.012) K/mm3 Nucleated RBC % 0.0 (0.0-0.2) % PT 13.5 (11.1-14.7) Seconds INR 1.0 APTT 31.1 (22.3-36.8) Seconds Sodium 143 (137-145) mmol/L Potassium 3.8 (3.4-5.0) mmol/L Chloride 105 (98-107) mmol/L Carbon Dioxide 28 (22-30) mmol/L Anion Gap 10 (4-12) mmol/L BUN 7 L (9-20) mg/dL Creatinine 0.85 (0.7-1.3) mg/dL Estim Creat Clear Calc 146 ml/min Estimated GFR > 60 (59 - ) Glucose 101 (65-110) mg/dL Calcium 9.4 (8.4-10.2) mg/dL Total Bilirubin 0.5 (0.2-1.3) mg/dL AST 21 (17-59) U/L ALT 14 (6-50) U/L Alkaline Phosphatase 121 (38-126) U/L Troponin I < 0.012 (0.000-0.034) ng/mL Total Protein 8.0 (6.3-8.2) g/dL Albumin 4.3 (3.5-5.1) g/dL Lipase 47 (23-300) U/L Discharge Plan Discharge Clinical Impression: Atypical chest pain Patient Disposition: Home, Self-Care Condition: Stable Instructions: Antibiotic Form, Costochondritis (ED) Additional Instructions: Your exam is reassuring today. Take naproxen twice per day for musculoskeletal pain. Please take your blood pressure as medication as prescribed. Follow-up with PCP on this issue. If you have any new or worsening symptoms please return to the ER for further evaluation. Patient Language: Nepalese Prescriptions: No Action amlodipine [Norvasc] 5 mg Tablet 5 mg PO DAILY fluticasone propionate [Flonase Allergy Relief] 50 mcg/actuation spray,suspension 2 spray intranasal DAILY Qty: 16 0RF Rx Instructions: administer into each nostril hydrochlorothiazide 25 mg tablet 25 mg DIRECTED Follow-up/Referrals: Willard,Derick Milian MD [Non-Staff] - Stand Alone Forms: Work/School Release IP Time of Disposition: 00:16 Quality HEART score for chest pain patients History: slightly suspicious ECG: normal Age: > 45 and < 65 years Risk factors: 1 or 2 risk factors Troponin: < or = to 1x normal limit Heart score: 2
--- OUTSIDE RECORDS SUMMARY | 2024-08-06 00:01 | XMS_ITS | Clinical Summary ---
Author Organization [facility] [place] [facility] [place] [address] [facility] Address [address] [place] [address] Care Team Providers Care Diplomatic Courier Name Role Phone Nicolette Glez Primary Care Provider +1- [phone] Allergies Active Allergy Reactions Criticality Noted Date [...] he could qualify for Wegovy and or [place] bound. Assessment & Plan (01/08/2024 11:17 PM [...] 05/12/2019 Assessment & Plan (05/12/2019 6:57 PM WELD FITTER): Encouraged vaccine. Reviewed risks/ benefits. Patient refuses and accepts risks. Angioedema 05/10/2019 Overview (05/10/2019): Probably due to DANIELITO Assessment & Plan (05/10/2019 10:28 AM WELD FITTER): Discussed with patient this appears to be [...] diabetes. Assessment & Plan (05/12/2019 6:54 PM WELD FITTER): Pre-diabetes is a precursor to Dm. Stressed [...] office Assessment & Plan (05/12/2019 6:54 PM WELD FITTER): Bp is elevated today. He didn't take his medication today. Encouraged to take daily and monitor bp. If sonsistently over 140/90 may need to adjust dose. Encouraged to limit sodium intake and exercise for weight control. Assessment & Plan (05/10/2019 10:22 AM WELD FITTER): STOP DANIELITO and avoid for the future. [...] 05/12/2019 Assessment & Plan (05/12/2019 6:56 PM WELD FITTER): Updated in the office. Annual physical exam [...] screenings. Assessment & Plan (05/12/2019 6:56 PM WELD FITTER): Encouraged healthy lifestyle, good nutrition and exercise. Encouraged Calcium and Vitamin D and weight bearing exercise for bone health. Reviewed immunizations Reviewed age appropirate screenings. Obesity, morbid, BMI 40.0-49.9 05/10/2019 05/10/2019 Morbid obesity with BMI of 45.0-49.9, adult 05/09/2019 05/09/2019 Morbid obesity with BMI of 45.0-49.9, adult 05/09/2019 12/17/2020 Assessment & Plan (05/10/2019 10:22 AM WELD FITTER): Obesity is unchanged. Discussed the patient's BMI. The BMI is above average. BMI management plan is completed. BMI Follow-up includes: nutrition counseling, exercise counseling and education provided. Assessment & Plan (05/09/2019 8:06 AM WELD FITTER): Obesity is unchanged. Discussed the patient's BMI. The BMI is above average. BMI management plan is completed. BMI Follow-up includes: nutrition counseling, exercise counseling and education provided. BMI 45.0-49.9, adult 05/09/2019 021 Assessment & Plan (05/10/2019 10:22 AM WELD FITTER): Obesity is unchanged. Discussed the patient's BMI. The BMI is above average. BMI management plan is completed. BMI Follow-up includes: nutrition counseling, exercise counseling and education provided. Assessment & Plan (05/12/2019 6:58 PM WELD FITTER): Obesity is unchanged. Discussed the patient's BMI. [...] Type Department Care Team Description 05/24/2024 Telephone [facility] Lab [address] [place] [address] Mary Gomez, [facility] Sleep Study Results 05/24/2024 Orders Only [facility] [address] [place] [phone] Tyree Cueto MD GUNNAR (obstructive sleep apnea) (Primary Dx) 05/23/2024 2:00 PM WELD FITTER - 05/23/2024 11:59 PM [facility] Hospital Encounter [facility] [address] [place] [address] Daytime sleepiness; Snoring Discharge Disposition: Discharge to [...] on file Legal Sex Male 11:23 AM WELD FITTER Gender Identity Not on file Sexual Orientation Not on file 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 ile Obstetrics History Last Filed Vital Signs Vital Sign Reading Time Taken Comments Blood Pressure 118/78 2024 11:25 AM CDT Pulse 77 2024 11:25 AM CDT Temperature 37.1 C (98.8 F) 2024 11:25 AM CDT Respiratory Rate 12 07/26/2023 5:20 PM WELD FITTER Oxygen Saturation 96% 2024 11:25 AM CDT [...] this topic Medical Devices Implanted Type Area Commissary Officer Device Identifier Shelf Expiration Date Model / Serial / Lot Sylvia Carter Porp [place] Prosthesis [employer]icular 655 - [id number] Implanted:Qty: 1 on 07/26/2023 by Quentin Dominique MD at [facility] Left: Ear [employer] [id number] 09/15/2023 65 / [id number] Procedures Procedure Name Priority Date/Time Associated Diagnosis Comments PORTABLE/HOME SLEEP STUDY Routine 05/23/2024 2:09 PM WELD FITTER Daytime sleepiness Snoring PSA SCREEN Routine 12/17/2020 9:51 AM CDT Prostate cancer screening from Last 3 Months or Most Recently Relevant to Health Maintenance Results * Portable/Home Sleep Study (05/23/2024 2:09 PM WELD FITTER) Crystal Katz NP SLEEP CENTER ORDERABLES Final Result [facility] SLEEP MEDICINE [address] [place] [address] * PSA screen (12/17/2020 9:51 AM CDT) [...] PA LAB BLOOD ORDERABLES Final Result [facility] [id number] [place] [id number] from Last 3 Months or Most Recently Relevant to Health Maintenance Insurance [facility] Care Teams Diplomatic Courier Relationship Specialty Start Date End Date Nicolette Glez PA [address] [place] [address] PCP - General Internal Medicine 09/25/18
--- OUTSIDE RECORDS SUMMARY | 2024-08-06 00:01 | XMS_ITS | Referral Summary ---
Author Organization [facility] [address] [facility] Address [address] [place] [address] Care Team Providers Care Time Recorder Name Role Phone Nicolette Glez Primary Care Provider [phone]- [phone] Encounters Date Type Department Care Team Description 05/24/2024 Telephone [facility] [address] [place] [address] Mary Gomez [facility] Sleep Study Results 05/24/2024 Orders Only [facility] [address] [place] [address] Tyree Cueto MD GUNNAR (obstructive sleep apnea) (Primary Dx) 05/23/2024 2:00 PM CHILD WELFARE SOCIAL WORKER - 05/23/2024 11:59 PM CHILD WELFARE SOCIAL WORKER Hospital Encounter [facility] [address] [place] [address] Daytime sleepiness; Snoring Discharge Disposition: [...] he could qualify for [place]gov[place] and or [place]. Assessment & Plan (01/08/2024 11:17 PM [...] 05/12/2019 Assessment & Plan (05/12/2019 6:57 PM CHILD WELFARE SOCIAL WORKER): Encouraged vaccine. Reviewed risks/ benefits. Patient refuses and accepts risks. Angioedema 05/10/2019 Overview (05/10/2019): Probably due to DANIELITO Assessment & Plan (05/10/2019 10:28 AM CHILD WELFARE SOCIAL WORKER): Discussed with patient this appears to be [...] diabetes. Assessment & Plan (05/12/2019 6:54 PM CHILD WELFARE SOCIAL WORKER): Pre-diabetes is a precursor to Dm. Stressed [...] office Assessment & Plan (05/12/2019 6:54 PM CHILD WELFARE SOCIAL WORKER): Bp is elevated today. He didn't take his medication today. Encouraged to take daily and monitor bp. If sonsistently over 140/90 may need to adjust dose. Encouraged to limit sodium intake and exercise for weight control. Assessment & Plan (05/10/2019 10:22 AM CHILD WELFARE SOCIAL WORKER): STOP DANIELITO and avoid for the future. [...] 05/12/2019 Assessment & Plan (05/12/2019 6:56 PM CHILD WELFARE SOCIAL WORKER): Updated in the office. Annual physical exam [...] screenings. Assessment & Plan (05/12/2019 6:56 PM CHILD WELFARE SOCIAL WORKER): Encouraged healthy lifestyle, good nutrition and exercise. Encouraged Calcium and Vitamin D and weight bearing exercise for bone health. Reviewed immunizations Reviewed age appropirate screenings. Obesity, morbid, BMI 40.0-49.9 05/10/2019 05/10/2019 Morbid obesity with BMI of 45.0-49.9, adult 05/09/2019 05/09/2019 Morbid obesity with BMI of 45.0-49.9, adult 05/09/2019 12/17/2020 Assessment & Plan (05/10/2019 10:22 AM CHILD WELFARE SOCIAL WORKER): Obesity is unchanged. Discussed the patient's BMI. The BMI is above average. BMI management plan is completed. BMI Follow-up includes: nutrition counseling, exercise counseling and education provided. Assessment & Plan (05/09/2019 8:06 AM CHILD WELFARE SOCIAL WORKER): Obesity is unchanged. Discussed the patient's BMI. The BMI is above average. BMI management plan is completed. BMI Follow-up includes: nutrition counseling, exercise counseling and education provided. BMI 45.0-49.9, adult 05/09/2019 021 Assessment & Plan (05/10/2019 10:22 AM CHILD WELFARE SOCIAL WORKER): Obesity is unchanged. Discussed the patient's BMI. The BMI is above average. BMI management plan is completed. BMI Follow-up includes: nutrition counseling, exercise counseling and education provided. Assessment & Plan (05/12/2019 6:58 PM CHILD WELFARE SOCIAL WORKER): Obesity is unchanged. Discussed the patient's BMI. [...] on file Legal Sex Male 11:23 AM CHILD WELFARE SOCIAL WORKER Gender Identity Not on file Sexual Orientation Not on file Occupation Industry Job Start Date Job End Date [employer] Not on file Not on file Not on f ile Last Filed Vital Signs Vital Sign Reading Time Taken Comments Blood Pressure 118/78 2024 11:25 AM CDT Pulse 77 2024 11:25 AM CDT Temperature 37.1 C (98.8 F) 2024 11:25 AM CDT Respiratory Rate 12 07/26/2023 5:20 PM CHILD WELFARE SOCIAL WORKER Oxygen Saturation 96% 2024 11:25 AM CDT Inhaled Oxygen Concentration - - Weight 171 kg (376 lb 14.4 oz) 2024 11:25 AM CDT Height 180.3 cm (5' 11 ) 2024 11:25 AM CDT Body Mass Index 52.57 2024 11:25 AM CDT Plan of Treatment Not on file Medical Devices Implanted Type Area Facilities Engineering Manager Device Identifier Shelf Expiration Date Model / Serial / Lot [employer] Porp [place] Prosthesis Ossicular 655 - [id number] Implanted:Qty: 1 on 07/26/2023 by Quentin Dominique MD at [facility] Left: Ear [employer] [id number] 09/15/2023 65 5 / / [id number] Procedures Procedure Name Priority Date/Time Associated Diagnosis Comments PORTABLE/HOME SLEEP STUDY Routine 05/23/2024 2:09 PM CHILD WELFARE SOCIAL WORKER Daytime sleepiness Snoring PSA SCREEN Routine 12/17/2020 9:51 AM CDT Prostate cancer screening from Last 3 Months or Most Recently Relevant to Health Maintenance Results * Portable/Home Sleep Study (05/23/2024 2:09 PM CHILD WELFARE SOCIAL WORKER) us Crystal Katz NP SLEEP CENTER ORDERABLES Final Result [facility] [address] [place] [address] * PSA screen (12/17/2020 9:51 AM CDT) PSA 0.6 < OR = 4.0 ng/mL [facility] marcial Comment: The total PSA value from [...] SINGH LAB BLOOD ORDERABLES Final Result [facility] [address] [place] [address] from Last 3 Months or Most Recently Relevant to Health Maintenance Insurance [employer] Member Subscriber Plan / Payer (Ef fective 2021-Present) Name:Nick Patel Relation to Subscriber:Self Name:Nick Patel Payer ID:[id number] (NAIC) Type:[facility] Address: [facility] [id number] [id number] [facility] [employer] Care Teams Time Recorder Relationship Specialty Start Date End Date Nicolette Glez PA [address] [facility] [address] [place] [address] PCP - General Internal Medicine 09/25/18
[2024-08-06 00:04] VITALS: O2SAT 98
[2024-08-06] MEDS: KETOROLAC 30 MG/ML VIAL (*BKC) IM (00:18)
== END 2024-08-06 00:30 | disposition home or self-care (01) ==
PROVIDERS: Emergency Medicine; Emergency Provider Physician Assistant; PCP Physician Assistant
DX: R07.89 Other chest pain (principal); I10 Essential (primary) hypertension; E66.9 Obesity, unspecified; Z68.43 Body mass index [BMI] 50.0-59.9, adult; R73.03 Prediabetes; Z87.442 Personal history of urinary calculi; R94.31 Abnormal electrocardiogram [ECG] [EKG]
CPT/HCPCS: 36415; 71046; 80053; 83690; 84484; 85025; 85610; 85730; 93005; 96372; 99284; J1885

== ENCOUNTER 2025-03-21 18:44 | Emergency (ER) | payer BC, SELFPAY ==
[2025-03-21 19:00] VITALS: BP 122/74; PULSE 86; RESP 20; TEMP 36.5; O2SAT 100
--- NOTE | 2025-03-21 19:07 | ED.ABDPAIN ---
HPI - Abdominal Pain General Chief Complaint: Nausea/Vomiting/Diarrhea Stated Complaint: not eating patient presents to [facility] care with complaints of 6 days of not feeling himself, noted not eating as much, not wanting to eat, and occasional queasy feeling in stomach. Patient denies any new foods or medications. Denies any known sick contacts. No medication or remedies attempted for symptoms. Denies diarrhea, significant abdominal pain, vomiting, headache, dizziness, fever, chills, body aches. Related Data Home Medications ?Medication ?Instructions ?Recorded ?Confirmed ?Last Taken ?Type amlodipine 5 mg tablet (Norvasc) 5 mg PO DAILY 10/23/20 10/07/22 Unknown History hydrochlorothiazide 25 mg tablet 25 mg PO DIRECTED 01/16/21 10/07/22 Unknown History Allergies Allergy/AdvReac Type Severity Reaction Status Date / Time No Known Allergies Allergy Verified 03/21/25 19:08 Review of Systems Constitutional: Constitutional: Reports as per HPI, Denies chills, Reports fatigue, Denies fever(s) and Denies weakness Eyes: Eyes: Reports no additional eye complaints ENT: Reports system reviewed and no additional complaints, except as documented Cardiovascular: Cardiovascular: Reports no additional cardiovascular complaints Respiratory: Respiratory: Reports no additional respiratory complaints Gastrointestinal: Gastrointestinal: Reports as per HPI, Denies abdominal pain, Denies bloating, Denies constipation, Denies heartburn, Denies diarrhea, Reports nausea and Denies vomiting Genitourinary: Genitourinary: Reports no additional male genitourinary complaints Musculoskeletal: Musculoskeletal: Reports as per HPI and Denies back pain Integumentary/Breasts: Skin/Breast: Reports system reviewed and no additional complaints, except as docu Neurologic: Reports as per HPI, Denies headache(s), Denies numbness and Denies weakness Psychiatric: Psychiatric: Reports no additional psychiatric complaints Endocrine: Endocrine: Reports no additional endocrine complaints Hematologic/Lymphatic: Hematologic/Lymphatic: Reports no additional hematologic/lymphatic complaints Allergic/Immunologic: Allergic/Immunologic: Reports no additional allergic/immunologic complaints [facility] Past Medical History Medical History (Updated 03/21/25 @ 19:15 by DULCE MaresP-C) Obesity Borderline diabetes Kidney stones Hypertension Social History Social History Smoking status: Never smoker Alcohol intake: current Alcohol use details: social Substance use type: does not use Living arrangements: with family Gender identity (if verbalized by the patient): Male Exam Const: General: healthy appearing and no acute distress Nutritional Appearance: well nourished Orientation/consciousness: patient oriented x3 Limitations: no limitations Resp: Effort & Inspection: normal respiratory effort Auscultation: clear to auscultation bilaterally Cardio: Rate: regular rate Rhythm: regular rhythm GI: Inspection: non-distended GI Palp: Yes Soft to palpation, No Tenderness to palpation present (GI), No Guarding due to palpation present (GI), No Rigid due to palpation, No Hernia present and No Rebound tenderness present Auscultation: normal bowel sounds : General: Yes bladder normal to palpation and Yes no CVA tenderness Skin: General skin exam: normal color Rashes: no rashes Wounds: no wounds Neuro: General: patient oriented x3 Speech: normal speech Gait exam (Neuro): Normal gait present Psych: Mental Status: mental status grossly normal Affect: normal affect Attitude: cooperative Course Course Level of Care: Express Care Visit MDM - Abdominal Pain MDM Narrative Medical decision making narrative: No significant abnormalities noted exam today. Educated patient on several signs and symptoms that would need evaluation in the emergency room The patient was evaluated by myself in the express care. History is obtained from patient who is an independent historian and physical exam was performed. Available medical records were reviewed at this time. Exam findings show no acute concerns or changes; patient is non-toxic appearing and is in no distress. Patient is appropriate for outpatient treatment and follow-up. I have evaluated and discussed social determinants of health with the patient that could potentially impact subsequent diagnosis and treatment plans. Differential diagnosis and treatment plan were discussed with the patient. Patient agrees with discussion and after shared medical decision making agrees with plan of care. All questions were answered to the patient's satisfaction. Differential Diagnosis Differential diagnosis: Likely abdominal pain, acute appendicitis, calculus of kidney, constipation, diverticulitis, gastroenteritis, pancreatitis and small bowel obstruction Medical Records Attestation: I reviewed the patient's medical records. Discharge Plan Discharge Clinical Impression: Malaise, Nausea Patient Disposition: Home Condition: Stable Instructions: Antibiotic Form, Acute Nausea and Vomiting (ED), Abdominal Pain (ED) Additional Instructions: take Pepcid 20 mg as directed for the next few days may also use Pepto-Bismol as needed for sudden symptoms. Also sent Zofran to the pharmacy for significant nausea or upset stomach. If you began to have significant abdominal pain are unable to keep any food or drink down or began to have fevers or diarrhea follow-up with emergency room for further evaluation Patient Language: Yi Prescriptions: New ondansetron 4 mg tablet,disintegrating 4 mg PO Q8H PRN (Reason: nausea and vomiting) Qty: 20 0RF No Action amlodipine [Norvasc] 5 mg Tablet 5 mg PO DAILY hydrochlorothiazide 25 mg tablet 25 mg PO DIRECTED Follow-up/Referrals: Amaris,FRANCISCO Will [Primary Care Provider, Unknown] Time of Disposition: 19:15
== END 2025-03-21 19:20 | disposition home or self-care (01) ==
PROVIDERS: Emergency Provider Nurse Practitioner Family; PCP Physician Assistant
DX: R53.81 Other malaise (principal); R11.0 Nausea; I10 Essential (primary) hypertension; E66.9 Obesity, unspecified; Z68.42 Body mass index [BMI] 45.0-49.9, adult; R73.03 Prediabetes
CPT/HCPCS: 99213; G0463